=== PATIENT | female | born 1995 | race Caucasian/White ===

== ENCOUNTER 2017-04-06 23:36 | Inpatient (IN) | payer OTHER ==
[~2017-04-06 23:36] MED LIST: MTR600X PO; PRENTAB26 PO
[2017-04-07] MEDS ORDERED: LACTATED RINGER'S 1000ML 1,000 ML IV PRN (00:43)
[2017-04-07] MEDS ORDERED: PENICILLIN G POTASSIUM IV 6 MU in DEXTROSE 5% 250ML 250 ML IV ONE (00:45)
[2017-04-07] MEDS ORDERED: PENICILLIN G POTASSIUM IV 3 MU in DEXTROSE 5% 100ML 100 ML IV PRN (00:45)
[2017-04-07] MEDS ORDERED: FENTANYL 2MCG/ML ROPIV 1.25MG/ML 100ML BAG EPI ONE (00:53)
[2017-04-07] MEDS ORDERED: FENTANYL CITRATE INJ 50 MCG/1 ML 2 ML VIAL ONE (00:53)
[2017-04-07] MEDS ORDERED: EpHEDrine SULFATE INJ 50 MG/ML AMP ONE (00:53)
[2017-04-07] MEDS ORDERED: BUPIVACAINE 0.25% 30 ML VIAL ONE (00:53)
[2017-04-07 01:14] VITALS: Wt 68.2 kg
[2017-04-07 01:16] LABS: HEMATOCRIT 31.4 % (37-47); MEAN CELL VOLUME 89.2 fL (80-100); MEAN CORPUSCULAR HEMOGLOBIN 30.4 pg (25-34); MEAN CORPUSCULAR HGB CONC 34.1 g/dl (32-36); MEAN PLATELET VOLUME 9.8 fL (7.4-10.4); PLATELET COUNT 217 K/uL (130-400); RED BLOOD COUNT 3.52 M/uL (4.2-5.4); WHITE BLOOD COUNT 17.88 K/uL (4.8-10.8)
[2017-04-07] MEDS ORDERED: LACTATED RINGER'S 1000ML 500 ML IV PRN (01:51)
[2017-04-07] MEDS ORDERED: NALOXONE HCL INJ 1 MG in SODIUM CHLORIDE 0.9% 1000ML 1,000 ML IV PRN (01:51)
[2017-04-07] MEDS: LACTATED RINGER'S 1000ML 1,000 ML IV SCH ×2 (01:55→04:42)
[2017-04-07] MEDS ORDERED: DiphenhydrAMINE HCL 50 MG/ML VIAL IV PRN (02:00)
[2017-04-07] MEDS ORDERED: ONDANSETRON INJ 2 MG/ML 2 ML VIAL IV PRN (02:00)
[2017-04-07] MEDS ORDERED: FENTANYL 2MCG/ML ROPIV 1.25MG/ML 100ML BAG EPI PRN (02:00)
[2017-04-07] MEDS ORDERED: NALOXONE HCL INJ 0.4 MG/1 ML VIAL/CARP IV PRN (02:00)
[2017-04-07] MEDS ORDERED: EpHEDrine SULFATE INJ 50 MG/ML AMP IV PRN (02:00)
[2017-04-07] MEDS ORDERED: NALBUPHINE HCL INJ 10 MG/ML AMP IV PRN (02:00)
[2017-04-07] MEDS ORDERED: OXYTOCIN 30 UNITS/500ML NSS IV ONE (05:09)
[2017-04-07] MEDS ORDERED: OXYCODONE/ACETAMINOPHEN 5-325 TAB PO PRN (05:30)
[2017-04-07] MEDS ORDERED: HYDROCORTISONE ACETATE 25 MG SUPP PR PRN (05:30)
[2017-04-07] MEDS ORDERED: MISOPROSTOL 200 MCG TAB PR SCH (05:30)
[2017-04-07] MEDS ORDERED: ACETAMINOPHEN 325 MG TAB PO PRN (05:30)
[2017-04-07] MEDS ORDERED: ACETAMINOPHEN/CODEINE 300/30MG TAB PO PRN ×2 (05:30)
[2017-04-07] MEDS ORDERED: BENZOCAINE 20% AER SPR 82.5 GM CAN EXT PRN (05:30)
[2017-04-07] MEDS ORDERED: SUPERCREAM 0.870 % 15GM JAR EXT PRN (05:30)
[2017-04-07] MEDS ORDERED: LANOLIN OINT EXT PRN ×2 (05:30)
--- NOTE | 2017-04-07 06:55 | HISTORY & PHYSICAL EXAMINATION ---
DATE OF ADMISSION: 04/07/2017 HISTORY OF PRESENT ILLNESS: The patient is a 22-year-old G2, P1, due date 05/16/2017, making her 34 weeks and 2 days who presented on 04/06/2017 with contractions every 3-4 minutes. On arrival to labor and delivery, she had no shortness of breath, no chills, no fever. She was examined and found to be 5 cm dilated with bulging membranes and 0 station. Decision was therefore made to admit patient and anticipate delivery. The patient's had been uncomplicated. She had no history of labor and had never been seen and evaluated during the course of her for labor. LABS: O positive, antibody negative, rubella immune, GBS is unknown. PAST MEDICAL HISTORY: None. PAST SURGICAL HISTORY: The patient has had dental surgery in the past. 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 SOCIAL HISTORY: The patient denies tobacco, drug or alcohol use. ALLERGIES: No known drug allergies. PHYSICAL EXAMINATION: GENERAL: Well-developed, well-nourished white female in no acute distress. HEART: S1, S2, regular rhythm and rate. LUNGS: Clear to auscultation bilaterally. ABDOMEN: Gravid. EXTREMITIES: No cyanosis, clubbing or edema. PELVIC: On admission as stated above was 5 cm with bulging membranes. Bedside ultrasound shows cephalic presentation. ASSESSMENT AND PLAN: A 22-year-old G2, P1 at 34 weeks with labor. Anticipate delivery. The patient is admitted, will be giving GBS prophylaxis. Anticipate vaginal delivery.
--- NOTE | 2017-04-07 06:58 | DELIVERY SUMMARY ---
DATE OF OPERATION: 04/07/2017 The patient delivered a live infant in left occiput anterior presentation. There was a body cord around the left arm. There was no nuchal cord. Infant was delivered. Cord was clamped and cut and handed over to the awaiting pediatric team. 's weight is pending. Apgars 7 and 9. Cord gas and Cord blood obtained. Placenta is spontaneously delivered and sent to pathology for pathological analysis. Inspection of the perineum showed no lacerations or tears. Estimated blood loss is 500 mL. Baby and mother are doing well in recovery. All instruments are accounted for including sponges and retractors. I attest to the content of the Intraoperative Record and any orders documented therein. Any exception s are noted below.
--- NOTE | 2017-04-07 07:12 | Anesthesia Procedure Note ---
Anesthesia Epidural Removal Nt Date & Time Apr 07, 2017 at 07:12 Vital Signs Pain Intensity: 0.0 Notes Mental Status: alert / awake / arousable, participated in evaluation Nausea / Vomiting: adequately controlled Pain: adequately controlled Airway Patency, RR, SpO2: stable & adequate BP & HR: stable & adequate Hydration State: stable & adequate Neuraxial Anesthesia: was administered Anesthetic Complications: no major complications apparent, pt satisfied with anesthetic care Epidural: removed without complications, with tip intact
[2017-04-07 07:30] VITALS: BP 121/60; PULSE 90; TEMP 37.7
[2017-04-07] MEDS: PANTOprazole SOD 40 MG TAB PO SCH ×2 (08:00→20:00)
[2017-04-07] MEDS: PRENATAL VITAMIN TAB PO SCH (08:14)
[2017-04-07] MEDS: DOCUSATE SODIUM 100 MG CAP PO SCH ×2 (08:14→20:00)
[2017-04-07] MEDS: FERROUS SULFATE 325 MG TAB PO SCH (08:15)
[2017-04-07 08:30] VITALS: BP 120/72; PULSE 91; TEMP 36.8; O2SAT 99
[2017-04-07] MEDS: IBUPROFEN 600 MG TAB PO PRN ×2 (11:45→17:24)
[2017-04-07 12:55] VITALS: BP 110/73; PULSE 72; TEMP 36.8; O2SAT 97
[2017-04-07 17:15] VITALS: BP 110/72; PULSE 76; TEMP 36.6; O2SAT 99
[2017-04-07 19:20] VITALS: BP 116/75; PULSE 78; TEMP 36.4
[2017-04-08] VITALS: BP 103/69; PULSE 80; TEMP 36.6
[2017-04-08 03:59] VITALS: BP 97/63; PULSE 71; TEMP 36.6
[2017-04-08 07:45] VITALS: BP 103/69; PULSE 79; TEMP 36.5; O2SAT 100
[2017-04-08] MEDS: PANTOprazole SOD 40 MG TAB PO SCH (08:00)
[2017-04-08 08:20] VITALS: BP 103/69; PULSE 79; TEMP 36.5
[2017-04-08] MEDS: DOCUSATE SODIUM 100 MG CAP PO SCH (08:22)
[2017-04-08] MEDS: FERROUS SULFATE 325 MG TAB PO SCH (08:22)
[2017-04-08] MEDS: PRENATAL VITAMIN TAB PO SCH (08:22)
[2017-04-08] MEDS: IBUPROFEN 600 MG TAB PO PRN (08:23)
[2017-04-08 10:10] LABS: HEMATOCRIT 33.3 % (37-47)
[2017-04-08] MEDS ORDERED: MTR600X PO (11:38)
--- NOTE | 2017-04-08 11:38 | OB/GYN Progress Note ---
INVENTORY CONTROL/SHIPPING RECEIVING Progress Note Date of Service Apr 08, 2017. Subjective conversation w/ patient Ambulation: ambulating normally Voiding: no voiding problems Passing Gas: Yes Diet Tolerance: Regular Diet Lochia: Small Feeding Type: Bottle Feeding Objective Vital Signs Date Time Temp Pulse Resp B/P (MAP) Pulse Ox O2 Delivery O2 Flow Rate FiO2 04/08/17 08:20 Room Air 04/08/17 08:20 36.5 79 16 103/69 (80) Room Air 04/08/17 07:45 36.5 79 16 103/69 (80) 100 Room Air 04/08/17 03:59 36.6 71 16 97/63 (74) Room Air 04/08/17 00:00 36.6 80 18 103/69 (80) Room Air 04/08/17 00:00 Room Air 04/07/17 19:20 Room Air 04/07/17 19:20 36.4 78 18 116/75 (89) Room Air 04/07/17 17:15 36.6 76 16 110/72 (85) 99 Room Air 04/07/17 17:15 99 Room Air 04/07/17 12:55 36.8 72 18 110/73 (85) 97 Room Air Physical Exam General Appearance: WELL-APPEARING, NO APPARENT DISTRESS Abdomen: non tender, soft Fundus: Firm Extremities: non-tender, normal inspection, no pedal edema Laboratory Results Last 24 Hours Test 04/08/17 09:53 Hemoglobin 11.4 g/dL Hematocrit 33.3 % Assessment and Plan Post- Day Number: 1 Continue Routine Care: patient requesting discharge tonight
--- NOTE | 2017-04-08 11:40 | Discharge Instructions ---
Discharge Instructions Date of Service Apr 08, 2017. Admission Reason for Admission: Labor Discharge Discharge Diagnosis / Problem: delivered Discharge Goals Goal(s): Routine recovery after delivery Activity Recommendations Activity Limitations: as noted below Lifting Limitations: no more than 10 pounds Exercise/Sports Limitations: gradually increase as tolerated May Resume Sexual Activity: after follow-up appointment Shower/Bathe: no limitations Driving or Machine Use: resume 3 days after discharge . Instructions / Follow-Up Instructions / Follow-Up ACTIVITY RECOMMENDATIONS: * Gradual return to full activity over the next 2-3 weeks. * No lifting - nothing heavier than baby over the next 2-3 weeks. * Do not engage in vigorous exercise, sexual activity or sports until cleared by your physician. * Do not drive or operate any motorized equipment until cleared by your physician. * You may shower/bathe daily. BREAST CARE: If you are not breast feeding: * Wear a supportive bra 24 hours a day for one to two weeks. * Avoid stimulating your breasts and nipples as much as possible during the first few weeks after delivery. * When taking a shower, have the warm water hit your back, not breasts. * When your breasts feel full, apply ice packs. Usually three to four times a day helps ease the discomfort. * Take a mild pain medication (Tylenol/Motrin) when you are uncomfortable. If breast feeding: * Use breast milk to lubricate nipples. Lansinoh cream may be used for sore nipples. You do not need to remove cream prior to breast feeding. If using a different brand of cream, check the label for directions regarding removal of cream prior to nursing. * Wear a supportive bra. * If having problems with breasts or breast feeding, call a ada accommodation consultant or your health care provider. EPISIOTOMY CARE: After delivery, if you have an episiotomy (stitches), the following steps will ease discomfort and aid healing. * For the first 24 hours after delivery, place ice packs next to your episiotomy to help reduce swelling. * After the first 24 hour-period, sitz baths, either portable or in the tub, are suggested. A shower with a shower arm sprayed over the episiotomy may be comforting. * Amy care should be done after each voiding and bowel movement. Squirt warm water from a plastic bottle over the perineum (region of the body between the anus and urinary opening) and pat dry. * Use Dermoplast to ease discomfort. Shake container. Wheeler directly over the episiotomy. * Place a Tucks on a clean sanitary pad next to your episiotomy. OVER THE COUNTER MEDICATION: * For discomfort or pain, you may use Acetaminophen (Tylenol), Ibuprofen (Advil ), or Naproxen (Aleve) following the package directions. * For constipation you may use Colace following the package directions. SPECIAL CARE INSTRUCTIONS: When you are discharged from the hospital, it is important for you to follow the instructions listed below: * During the first week at home, you should be able to care for yourself and your baby. In addition, the usual light household activities are encouraged. * Limit your activities to the way you feel. Do not try to clean the house or move furniture. Be sensible. * If you actively engage in sports and have done so up until the time of your delivery, you may resume these activities as soon as you feel able. This may take up to one month or even longer. Use good judgment. * Continue to take your vitamins for at least six weeks after the of your baby. * Your diet need not be limited unless you were on a special diet before your delivery. Breast-feeding mothers need around 2500 calories per day and at least 64-80 ounces of fluid per day (8 to 10 glasses). * You should eat foods from the four major food groups. Crash diets or fad diets are to be avoided. Eating lean meats, fresh fruits and vegetables, low-fat dairy products, high fiber foods and a regular exercise program, will help you get back to your pre- weight without putting your health at risk. * Constipation is sometimes a problem after delivery. Take a mild laxative as needed. If breast feeding, Milk of Magnesia is acceptable to use. You may use a suppository or Fleets enema if no episiotomy. * A daily shower or tub bath is suggested. Be sure to thoroughly and gently dry the perineum. * A bloody vaginal discharge will usually continue until around four weeks post . A small amount of bleeding may continue for as long as six weeks. Vaginal discharge changes from the bright red bleeding after delivery to pink then brownish and finally yellowish-pink before becoming white and disappearing. * Bleeding may increase with activity. Your first period may come in 4-8 weeks. If you are breast feeding, your period may be delayed even longer. * Nelagoney (sex) can begin whenever both you and your partner feel comfortable and do not have any form of genital infection. It is recommended that you wait until after your return appointment and discuss with your physician. If you have questions, please talk to your health care practitioner. A condom should be used to prevent infection and . * Foreplay, gentle intercourse and lubrication is very important the first several times to prevent pain. A water-based lubricant such as K-Y jelly or Astroglide may be used. * Tampons may be used six weeks after delivery. * Douching should be avoided for 6 weeks after delivery. * If you have RH negative blood and your baby is RH positive, you will receive RHOGAM by injection prior to discharge. The nurse will give you a card to keep with you that has the date and place that you received RHOGAM after delivery. * During your care, you had a Rubella screen done to check for the presence of rubella antibodies in your blood. If your test was negative, you will receive a Rubella vaccine prior to discharge. This vaccine may cause a fever, soreness at the injection site and flu-like symptoms. If these symptoms persist, notify your health care practitioner. is not advised for three months after a Rubella vaccine. There is a higher chance of having a baby with defects if conceived within three months of getting the vaccine. * If you were discharged 24 hours from delivery or before 48 hours: Visiting nurses will come to your home 48 hours after discharge to assess you and your baby. The visiting nurse will meet with you while you are in the hospital to arrange a time and get directions to your home. * Verbalizes understanding of car seat law as reviewed with patient nursing. * Car Seat hand-out given and reviewed with patient by nursing. * Shaken baby information reviewed with patient by nursing. Call you doctor if: * Heavy bleeding (saturating several pads an hour) or passing clots the size of your fist. * A fever >101 degrees F (38.3 degrees C) on two occasions four hours apart and/or chills. * Unusual pain in the pelvic or vaginal areas. * "Baby Blues" lasting longer than two weeks. If you have any questions or concerns, call your health care practitioner at . FOLLOW-UP VISIT: * Please call the office at to schedule a 6 week examination. It is important you keep this appointment. * It is important for you to make arrangements for either yearly or twice yearly check-ups thereafter. Current Hospital Diet Patient's current hospital diet: Regular OB Diet Discharge Diet Recommended Diet: Regular OB Diet Pending Studies Studies pending at discharge: no Medical Emergencies . Who to Call and When: Medical Emergencies: If at any time you feel your situation is an emergency, please call 911 immediately. . Non-Emergent Contact Non-Emergency issues call your: Primary Care Provider . . "Provider Documentation" section prepared by Russell Foster. . VTE Core Measure Inpt VTE Proph given/why not?: Treatment not indicated
[2017-04-08 16:00] VITALS: BP 123/80; PULSE 89; TEMP 36.7
[2017-04-08 17:40] VITALS: BP_DIAS 80; PULSE 89; TEMP 36.7
[2017-04-08] MEDS ORDERED: BISACODYL 5 MG TABEC PO SCH (20:00)
[2017-04-09] MEDS ORDERED: BISACODYL 10 MG SUPP PR PRN (07:00)
== END 2017-04-08 18:40 | disposition home or self-care (01) | DRG 775 ==
LOC: C.OPB 23:36 → C.LD 23:36 → C.OPB 04-07 00:47 → C.OBG 04-07 08:11
PROVIDERS: ADMIT Obstetrics & Gynecology; ATTEND Obstetrics & Gynecology
PROC: 10E0XZZ Delivery of Products of Conception, External Approach (ICD-10-PCS; principal; 2017-04-07)
DX: O60.14X0 Preterm labor third trimester with preterm delivery third trimester, not applicable or unspecified (principal); O76 Abnormality in fetal heart rate and rhythm complicating labor and delivery; O69.82X0 Labor and delivery complicated by other cord entanglement, without compression, not applicable or unspecified; Z3A.34 34 weeks gestation of pregnancy; Z37.0 Single live birth

== ENCOUNTER 2017-11-27 11:27 | Emergency (ER) | payer BC ==
[~2017-11-27] VITALS: Ht 160 cm; Wt 60.0 kg
[2017-11-27 11:29] VITALS: Ht 160 cm; Wt 60.0 kg
[2017-11-27] MEDS ORDERED: SODIUM CHLORIDE 0.9% 1000ML 1,000 ML IV STA (11:51)
[2017-11-27] MEDS ORDERED: MoRPHine SULFATE 10 MG/ML CARP/VIAL IV STA (11:51)
[2017-11-27] MEDS ORDERED: ONDANSETRON INJ 2 MG/ML 2 ML VIAL IV STA (11:51)
[2017-11-27] MEDS ORDERED: BCPILLS PO (11:54)
[2017-11-27] MEDS ORDERED: SERT25TA PO (11:54)
[2017-11-27 12:03] VITALS: O2SAT 99
[2017-11-27 12:14] LABS: BASO % 0.3 %; BASO ABS # 0.03 K/uL (0-0.2); EOS % 0.5 %; EOS ABS # 0.05 K/uL (0-0.5); HEMATOCRIT 41.3 % (37-47); IG# 0.02 K/uL (0.00-0.02); LYMPH ABS # 1.93 K/uL (1.2-3.4); MEAN CORPUSCULAR HEMOGLOBIN 28.8 pg (25-34); MEAN CORPUSCULAR HGB CONC 33.9 g/dl (32-36); MEAN PLATELET VOLUME 10.5 fL (7.4-10.4); MONO ABS # 0.31 K/uL (0.11-0.59); NEUT ABS # 7.84 K/uL (1.4-6.5); PLATELET COUNT 240 K/uL (130-400); RED CELL DISTRIBUTION WIDTH SD 37.1 fL (36.4-46.3); WHITE BLOOD COUNT 10.18 K/uL (4.8-10.8)
[2017-11-27 12:21] LABS: PTT PATIENT 23.6 SECONDS (21.0-31.0)
[2017-11-27 12:22] LABS: ISTAT CREATININE 0.8 mg/dl (0.6-1.3); ISTAT IONIZED CALCIUM 1.23 mmol/l (1.12-1.32); ISTAT POTASSIUM 3.7 mEq/L (3.3-5.0); ISTAT SODIUM 143 mEq/L (135-144)
[2017-11-27 12:24] LABS: CALCIUM 9.3 mg/dl (8.5-10.1); CREATININE 0.96 mg/dl (0.60-1.20); POTASSIUM 3.7 mmol/L (3.5-5.1); TOTAL PROTEIN 7.8 gm/dl (6.4-8.2)
--- NOTE | 2017-11-27 12:37 | DIAGNOSTIC IMAGING REPORT ---
CT SCAN OF THE ABDOMEN AND PELVIS WITHOUT CONTRAST CLINICAL HISTORY: RLQ abdominal pain, hematuria COMPARISON STUDY: No previous studies for comparison. TECHNIQUE: CT scan of the abdomen and pelvis was performed from the lung bases to the proximal femurs. Images are reviewed in the axial, sagittal, and coronal planes. IV contrast was not administered for this examination. A dose lowering technique was utilized adhering to the principles of ALARA. CT DOSE: 411.10 mGy.cm FINDINGS: Lower chest: The heart is normal in size and configuration, without pericardial effusion. The lung bases and pleural spaces are clear. Liver: The unenhanced liver is normal in size, contour, and attenuation. There is no intrahepatic biliary ductal dilatation. Gallbladder: Unremarkable. Spleen: Normal in size and attenuation. Pancreas: Unremarkable. Adrenal glands: Unremarkable. Kidneys: There are multiple bilateral renal calculi measuring up to 3 mm in diameter. There is right-sided hydronephrosis and hydroureter. There is a 2 mm right pelvic basin calcification. The distal right ureter is difficult to visualize. Given the right-sided hydronephrosis and hydroureter, an obstructing calculus is favored over a phlebolith. Bowel: There are no transition zones indicate bowel obstruction. The appendix appears normal as visualized. Peritoneum: There is no intraperitoneal free air or abdominal ascites. Vasculature: The abdominal aorta is normal in course and caliber. Adenopathy: None. Pelvic viscera: The bladder, and pelvic viscera are unremarkable. Skeletal structures: No destructive osseous lesions are seen. IMPRESSION: 1. Bilateral nephrolithiasis 2. Right-sided hydronephrosis and hydroureter, likely secondary to a 2 mm distal right ureteral calculus. Electronically signed by: Dandy Ellison M.D. 11/27/2017 12:36 PM Dictated Date/Time: 11/27/2017 12:28 PM
[2017-11-27] MEDS ORDERED: TAMSULOSIN HCL 0.4 MG CAP PO STA (13:07)
[2017-11-27] MEDS ORDERED: SULFAMETHOXAZOLE/TRIMETHOPRIM DS 800/160MG TAB PO STA (13:08)
[2017-11-27] MEDS ORDERED: TAMS0.4C38 PO (13:11)
[2017-11-27] MEDS ORDERED: OXYC-90 PO (13:11)
[2017-11-27] MEDS ORDERED: ONDA4TAB10 SL (13:11)
--- NOTE | 2017-11-27 13:12 | EMERGENCY ROOM VISIT NOTE ---
History First contact with patient: 11:33 Chief Complaint: ABDOMINAL PAIN Stated Complaint: RIGHT SIDED ABDOMINAL PAIN, VOMITING Nursing Triage Summary: Patient c/o of lower right abdominal and back pain, nausea and vomiting. History of Present Illness The patient is a 22 year old female who presents to the Emergency Room with complaints of right lower quadrant abdominal the patient describes the pain as sharp and rates it as 10/10. She states the pain began spontaneously approximately 8 AM after standing up after doing her makeup. Patient states the pain became worse while walking around. She has had associated nausea and vomiting. She states she does have 2 children and states the pain "feels like childbirth". The patient denies any abdominal surgeries. She denies any change in her diet. She states her last menstrual period was 2 days ago. The patient denies any abnormal vaginal bleeding or pain with intercourse. She denies any chest pain or dyspnea. She denies any headache, numbness, tingling, recent illness, fever, chills, or back pain. Review of Systems A complete 10 point review of systems was reviewed with the patient with pertinent positives and negatives as per history of present illness. All else were negative. Social History Smoking Status: Never Smoker Smokeless Tobacco Use: No Alcohol Use: none Drug Use: none Marital Status: Housing Status: lives with family Occupation Status: employed Current/Historical Medications Scheduled Control Pills ( Control Pills), 1 TAB PO HS Ondasetron Odt (Zofran Odt), 4 MG SL Q6H Sertraline (Zoloft), 25 MG PO QAM Tamsulosin Hcl (Flomax), 0.4 MG PO QD Scheduled PRN Oxycodone Ir (Roxicodone Ir), 1 TAB PO Q4H PRN for Pain Physical Exam Vital Signs Date Time Temp Pulse Resp B/P (MAP) Pulse Ox O2 Delivery O2 Flow Rate FiO2 11/27/17 13:31 71 18 107/57 100 Room Air 11/27/17 13:00 70 18 97/54 100 Room Air 11/27/17 12:35 74 11/27/17 12:33 74 18 111/66 100 Room Air 11/27/17 12:15 89 18 111/61 99 Room Air 11/27/17 12:03 99 Room Air 11/27/17 11:29 37.0 96 18 110/59 99 Room Air Physical Exam VITALS: Vitals are noted on the nurse's note and reviewed by myself. Vital signs stable. GENERAL: This is a 22-year-old white female, in no acute distress, nondiaphoretic, well-developed well-nourished. SKIN: The skin was without rashes, erythema, edema, or bruising. There is no tenting of the skin. Capillary reflex less than 2 seconds. HEAD: Normocephalic atraumatic. EARS: External auditory canals clear, tympanic membranes pearly cohen without erythema or effusion bilaterally. EYES: Pupils equal round and reactive to light and accommodation. Conjunctivae without injection, sclerae without icterus. Extraocular movements intact. NOSE: Patent, turbinates without inflammation or discharge. No sinus tenderness. MOUTH: Mucous membranes moist. Tonsils are not enlarged. Pharynx without erythema or exudate. Uvula midline. Airway patent. Tongue does not deviate. NECK: Supple without nuchal rigidity. No lymphadenopathy. No thyromegaly. Cervical spine is nontender. No JVD. HEART: Regular rate and rhythm without murmurs gallops or rubs. LUNGS: Clear to auscultation bilaterally without wheezes, rales or rhonchi. No dullness to percussion. No retractions or accessory muscle use. ABDOMEN: Positive bowel sounds x 4. Normal tympanic percussion. Right lower quadrant tenderness to palpation. Positive guarding with palpation of the right. Positive rebound tenderness. Positive Rovsing. The abdomen is otherwise soft, nontender, without masses or organomegaly. Case sign negative. \\Positive CVA tenderness on the right. MUSCULOSKELETAL: No muscle atrophy, erythema, or edema noted. Full range of motion without joint tenderness in all extremities. No tenderness to palpation. Normal gait. Strength 5/5 throughout. NEURO: Patient was alert and oriented to person place and time. Normal sensation to light and sharp touch. Deep tendon reflexes 2+ throughout. No focal neurological deficits. Medical Decision & Procedures ER Provider Diagnostic Interpretation: CT SCAN OF THE ABDOMEN AND PELVIS WITHOUT CONTRAST CLINICAL HISTORY: RLQ abdominal pain, hematuria COMPARISON STUDY: No previous studies for comparison. TECHNIQUE: CT scan of the abdomen and pelvis was performed from the lung bases to the proximal femurs. Images are reviewed in the axial, sagittal, and coronal planes. IV contrast was not administered for this examination. A dose lowering technique was utilized adhering to the principles of ALARA. CT DOSE: 411.10 mGy.cm FINDINGS: Lower chest: The heart is normal in size and configuration, without pericardial effusion. The lung bases and pleural spaces are clear. Liver: The unenhanced liver is normal in size, contour, and attenuation. There is no intrahepatic biliary ductal dilatation. Gallbladder: Unremarkable. Spleen: Normal in size and attenuation. Pancreas: Unremarkable. Adrenal glands: Unremarkable. Kidneys: There are multiple bilateral renal calculi measuring up to 3 mm in diameter. There is right-sided hydronephrosis and hydroureter. There is a 2 mm right pelvic basin calcification. The distal right ureter is difficult to visualize. Given the right-sided hydronephrosis and hydroureter, an obstructing calculus is favored over a phlebolith. Bowel: There are no transition zones indicate bowel obstruction. The appendix appears normal as visualized. Peritoneum: There is no intraperitoneal free air or abdominal ascites. Vasculature: The abdominal aorta is normal in course and caliber. Adenopathy: None. Pelvic viscera: The bladder, and pelvic viscera are unremarkable. Skeletal structures: No destructive osseous lesions are seen. IMPRESSION: 1. Bilateral nephrolithiasis 2. Right-sided hydronephrosis and hydroureter, likely secondary to a 2 mm distal right ureteral calculus. Electronically signed by: Dandy Ellison M.D. 11/27/2017 12:36 PM Dictated Date/Time: 11/27/2017 12:28 PM Laboratory Results 11/27/17 11:45 Red Blood Count 4.86, Mean Corpuscular Volume 85.0, Mean Corpuscular Hemoglobin 28.8, Mean Corpuscular Hemoglobin Concent 33.9, Mean Platelet Volume 10.5, Neutrophils (%) (Auto) 77.0, Lymphocytes (%) (Auto) 19.0, Monocytes (%) (Auto) 3.0, Eosinophils (%) (Auto) 0.5, Basophils (%) (Auto) 0.3, Neutrophils # (Auto) 7.84, Lymphocytes # (Auto) 1.93, Monocytes # (Auto) 0.31, Eosinophils # (Auto) 0.05, Basophils # (Auto) 0.03 11/27/17 11:45 Test 11/27/17 11:40 11/27/17 11:45 11/27/17 12:10 Urine Color DK YELLOW Urine Appearance CLOUDY (CLEAR) Urine pH 5.5 (4.5-7.5) Urine Specific [place] 1.025 (1.000-1.030) Urine Protein TRACE (NEG) Urine Glucose (UA) NEG (NEG) Urine Ketones 1+ (NEG) Urine Occult Blood 3+ (NEG) Urine Nitrite NEG (NEG) Urine Bilirubin NEG (NEG) Urine Urobilinogen NEG (NEG) Urine Leukocyte Esterase TRACE (NEG) Urine WBC (Auto) 5-10 /hpf (0-5) Urine RBC (Auto) >30 /hpf (0-4) Urine Hyaline Casts (Auto) 10-30 /lpf (0-5) Urine Epithelial Cells (Auto) >30 /lpf (0-5) Urine Bacteria (Auto) 1+ (NEG) Urine Pathogenic Casts 0-3 GRANULAR CASTS /lpf (0) Urine Mucus PRESENT (NONE PRSENT) Urine Test NEG (NEG) White Blood Count 10.18 K/uL (4.8-10.8) Red Blood Count 4.86 M/uL (4.2-5.4) Hemoglobin 14.0 g/dL (12.0-16.0) Hematocrit 41.3 % (37-47) Mean Corpuscular Volume 85.0 fL (80-100) Mean Corpuscular Hemoglobin 28.8 pg (25-34) Mean Corpuscular Hemoglobin Concent 33.9 g/dl (32-36) Platelet Count 240 K/uL (130-400) Mean Platelet Volume 10.5 fL (7.4-10.4) Neutrophils (%) (Auto) 77.0 % Lymphocytes (%) (Auto) 19.0 % Monocytes (%) (Auto) 3.0 % Eosinophils (%) (Auto) 0.5 % Basophils (%) (Auto) 0.3 % Neutrophils # (Auto) 7.84 K/uL (1.4-6.5) Lymphocytes # (Auto) 1.93 K/uL (1.2-3.4) Monocytes # (Auto) 0.31 K/uL (0.11-0.59) Eosinophils # (Auto) 0.05 K/uL (0-0.5) Basophils # (Auto) 0.03 K/uL (0-0.2) RDW Standard Deviation 37.1 fL (36.4-46.3) RDW Coefficient of Variation 12.0 % (11.5-14.5) Immature Granulocyte % (Auto) 0.2 % Immature Granulocyte # (Auto) 0.02 K/uL (0.00-0.02) Prothrombin Time 10.6 SECONDS (9.0-12.0) Prothromb Time International Ratio 1.0 (0.9-1.1) Activated Partial Thromboplast Time 23.6 SECONDS (21.0-31.0) Partial Thromboplastin Ratio 0.9 Est Creatinine Clear Calc Drug Dose 74.7 ml/min Estimated GFR () 95.9 Estimated GFR (Non- 82.8 BUN/Creatinine Ratio 12.7 (10-20) Calcium Level 9.3 mg/dl (8.5-10.1) Total Bilirubin 0.4 mg/dl (0.2-1) Aspartate Amino Transf (AST/SGOT) 18 U/L (15-37) Alanine Aminotransferase (ALT/SGPT) 24 U/L (12-78) Alkaline Phosphatase 48 U/L (45-117) Total Protein 7.8 gm/dl (6.4-8.2) Albumin 4.0 gm/dl (3.4-5.0) Globulin 3.8 gm/dl (2.5-4.0) Albumin/Globulin Ratio 1.0 (0.9-2) Lipase 79 U/L (73-393) Bedside Hemoglobin 13.3 g/dl (12.0-16.0) Bedside Hematocrit 39 % (37-47) Bedside Sodium 143 mEq/L (135-144) Bedside Potassium 3.7 mEq/L (3.3-5.0) Bedside Chloride 103 mEq/L (101-112) Bedside Total CO2 27 mEq/l (24-31) Anion Gap 18.0 mmol/L (16-25) Bedside Blood Urea Nitrogen 14 mg/dl (7-18) Bedside Creatinine 0.8 mg/dl (0.6-1.3) Bedside Glucose (other) mg/dl (70-99) Bedside Ionized Calcium (Willy) 1.23 mmol/l (1.12-1.32) Medications Administered Medications (Trade) Dose Ordered Sig/Abena Route Start Time Stop Time Status Last Admin Dose Admin Sodium Chloride 1,000 ml @ 999 mls/hr Q1H1M STAT IV 11/27/17 11:51 11/27/17 12:51 DC 11/27/17 12:12 999 MLS/HR Morphine Sulfate (MoRPHine SULFATE INJ) 6 mg NOW STAT IV 11/27/17 11:51 11/27/17 11:59 DC 11/27/17 12:13 6 MG Ondansetron HCl (Zofran Inj) 4 mg NOW STAT IV 11/27/17 11:51 11/27/17 11:59 DC 11/27/17 12:12 4 MG Tamsulosin HCl (Flomax Cap) 0.4 mg NOW STAT PO 11/27/17 13:07 11/27/17 13:09 DC 11/27/17 13:29 0.4 MG Trimethoprim/ Sulfamethoxazole (Septra Ds 800/ 160MG Tab) 1 tab NOW STAT PO 11/27/17 13:08 11/27/17 13:09 DC 11/27/17 13:30 1 TAB ED Course The patient was seen and evaluated as above. IV access obtained, labs drawn. The patient was given 1 L normal saline solution, morphine, and Zofran for pain and nausea Imaging performed and reviewed by myself and radiologist as above. Labs reviewed by myself. I discussed the findings with the patient at bedside. The patient was given Flomax and Bactrim here in the emergency department and provided with a urine strainer. Discharge instructions reviewed, the patient was discharged home in good condition. Medical Decision This is a 22-year-old female patient presents emergency department today complaining of right lower quadrant abdominal pain radiating toward the right flank. The pain began spontaneously this morning. She has not recently been ill and denies any fever. Workup here in the emergency department did not reveal any leukocytosis, anemia, thrombus cytopenia. The patient coagulation factors were normal. Renal, hepatic function and electrolytes normal. Lipase normal. Urinalysis was positive for blood, white blood cells, and bacteria. Urine test was negative. CT scan shows evidence for hydronephrosis and hydroureter, likely secondary to an obstructing stone in the distal right ureter. The patient will be started on Flomax and due to the bacteria and pyuria will be given 3 days of Bactrim. I did offer to hold on the antibiotics and wait for the culture, however the patient states she prefers to take the antibiotics in case of infection. The patient was encouraged to follow-up with her PCP and urologist on Thursday and return to the emergency department for any significantly worsening symptoms. All questions answered to patient's satisfaction. Etiologies such as renal colic, appendicitis, diverticulitis, mesenteric ischemia, aortic pathology, infections, inflammatory bowel disease, PUD, biliary pathology, UTI, as well as others were entertained. The chart was completed utilizing [employer] Speech voice recognition software. Grammatical errors, random word insertions, pronoun errors, and incomplete sentences are an occasional consequence of this system due to software limitations, ambient noise, and hardware issues. Any formal questions or concerns about the content, text, or information contained within the body of this dictation should be directly addressed to the provider for clarification. [place] Drug Monitoring Program Search Results: patient reviewed within database, no issues identified Medication Reconcilliation Current Medication List: was personally reviewed by me Blood Pressure Screening Patient's blood pressure: Normal blood pressure Impression Primary Impression: Hydronephrosis with urinary obstruction due to ureteral calculus Departure Information Dispostion Home / Self-Care Condition GOOD Prescriptions Sulfa/Trimethoprim (Bactrim Ds 800MG/160MG) Tab 1 TAB PO BID for 3 Days, #6 TAB Prov: Alyson Esquivel PA-C 11/27/17 Ondasetron Odt (ZOFRAN ODT) 4 Mg Tab 4 MG SL Q6H for Nausea, #15 TAB Prov: Alyson Esquivel PA-C 11/27/17 Oxycodone Ir (Roxicodone Ir) 5 Mg Tab 1 TAB PO Q4H Y for Pain, #15 TAB For Initial Treatment Prov: Alyson Esquivel PA-C 11/27/17 Tamsulosin Hcl (FLOMAX) 0.4 Mg Cap 0.4 MG PO QD, #14 CAP take until stone passes Prov: Alyson Esquivel PA-C 11/27/17 Referrals No Doctor, Assigned (PCP) Huber Lopez M.D. Patient Instructions ED Stone Renal W Colic, My [facility] Additional Instructions You have been treated in the Emergency Department today for a Kidney Stone ( Nephrolithiasis). You have received pain medicine in the emergency department which impairs your ability to operate a vehicle. It is illegal for you to drive after receiving these medicines. Trimethoprim-Sulfamethoxazole(Bactrim DS): Take one pill twice daily for 3 days for your urinary tract infection. All antibiotics can cause diarrhea. If this occurs and you feel worse or it does not resolve in 1-2 days follow up with your doctor or return to the Emergency Department as this could be signs of serious underlying problems. Any medication can cause an allergic reaction, stop the pills immediately and return to the ER for rash, hives, breathing difficulties, or swelling. You have been prescribed OxyIR to be used for pain control. This is a narcotic medication. You cannot drive or consume alcohol while on this medicine. This medicine should only be used for pain that cannot be controlled with over-the- counter pain medicines. You have been prescribed Zofran to be used for any nausea or vomiting. Take as prescribed. You have been prescribed Flomax 0.4 mg to be taken ONCE daily. This medicine has been prescribed as it can help relax the smooth muscles of the urinary tract increasing transit time of the kidney stone. For pain control, you can use the following yggm-ohx-cfiqnfk medicines (if >12 yo): Ibuprofen(Motrin, Advil) may be used for fever or pain. Use 600mg every six hours as needed. Take with food. Avoid using more than 2400mg in a 24 hour period. Do not use 2400mg per day for more than three consecutive days without physician direction. Prolonged inappropriate use can lead to stomach upset or ulcers. (AND/OR) Acetaminophen(Tylenol) may be used for fever or pain. Use 1000mg every six hours as needed. Avoid using more than 3000mg in a 24 hour period. You have been provided a strainer and specimen collection cup. You should strain your urine to collect any passed stones. Your stones can be placed into the specimen cup and taken to your Urologist for further evaluation. You have been provided the contact information for the on-call Urologist. You should contact the Urologist's office tomorrow to establish a follow-up appointment from today's Emergency Department visit. Return to the Emergency Department if your symptoms persist despite the treatment plan outlined above or if you develop the following symptoms: intractable pain, fever, chills, or large amounts of blood in your urine.
[2017-11-27 13:35] VITALS: BP 107/57; PULSE 71; TEMP 37; O2SAT 100
[2017-11-27] MEDS ORDERED: SULF800T23 PO (13:43)
== END 2017-11-27 13:36 | disposition home or self-care (01) ==
LOC: C.EDB 11:27 → MERGE 11:27 → C.EDC 13:36
DX: N13.2 Hydronephrosis with renal and ureteral calculous obstruction (principal); N39.0 Urinary tract infection, site not specified; Z79.3 Long term (current) use of hormonal contraceptives

== ENCOUNTER → 2017-12-08 | Outpatient (CLI) | payer BC ==
[~2017-12-08] MED LIST changes: +BCPILLS PO; +ONDA4TAB10 SL; +OXYC-90 PO; +SERT25TA PO; +TAMS0.4C38 PO
--- NOTE | 2017-12-08 11:29 | DIAGNOSTIC IMAGING REPORT ---
([place]/BLAD)RETROPERITON COMP CLINICAL HISTORY: 22 years-old Female presenting with N20.1 Ureteric yvnwzJ74.0 [id number]. TECHNIQUE: Real-time grayscale and limited color Doppler ultrasound imaging of the kidneys and bladder was performed. COMPARISON: CT from 11/27/2017. FINDINGS: Right kidney: Normal echogenicity of renal parenchyma. Right kidney measures 10.4 cm. Mild pelvocaliectasis. Multiple hyperechogenic foci measuring up to 4 mm, which may correlate with the renal calculi on CT. Left kidney: Normal echogenicity of renal parenchyma. Left kidney measures 11.1 cm. Mild pelviectasis. Multiple hyperechogenic foci measuring up to 5 mm, which may correlate with the renal calculi on CT. Bladder: Normal. Bilateral ureteral jets not visualized. Other: None. IMPRESSION: 1. Suspected mild right hydronephrosis. 2. Bilateral nephrolithiasis better appreciated on most recent CT. Electronically signed by: Que Castaneda M.D. 12/08/2017 11:27 AM Dictated Date/Time: 12/08/2017 11:25 AM
--- NOTE | 2017-12-08 11:32 | DIAGNOSTIC IMAGING REPORT ---
[facility]UB CLINICAL HISTORY: 22 years-old Female presenting with N20.1 Ureteric [id number] [id number]. TECHNIQUE: Single supine view of the abdomen was obtained. COMPARISON: CT from 11/27/2017 and ultrasound from 12/08/2017. FINDINGS: Nonobstructive bowel gas pattern. No gross pneumoperitoneum. Previously demonstrated bilateral nephrolithiasis on recent CT is not as well appreciated by radiograph. Additionally, the previously noted calculus in the distal right ureter is not radiographically apparent though this may indicate passage. Osseous structures normal. IMPRESSION: 1. Nonvisualization of the distal right ureteral calculus. This may be a limitation of radiograph or indicate passage. 2. Overall poor visualization of known bilateral nephrolithiasis by radiograph. Electronically signed by: Que Castaneda M.D. 12/08/2017 11:31 AM Dictated Date/Time: 12/08/2017 11:29 AM
== END | disposition home or self-care (01) ==
LOC: C.ULTR 10:43
PROVIDERS: ATTEND Urology
DX: N20.2 Calculus of kidney with calculus of ureter (principal)

== ENCOUNTER 2022-10-09 00:09 | Inpatient (IN) ==
[2022-10-09] MEDS ORDERED: NALOXONE HCL 1 MG in SODIUM CHLORIDE 0.9% 1000ML 1,000 ML IV PRN (00:35)
[2022-10-09] MEDS ORDERED: LIDOCAINE 1% LOCAL 20 ML VIAL INFIL PRN (00:35)
[2022-10-09] MEDS ORDERED: ePHEDrine sulfate 50 MG/ML AMP IV PRN (00:35)
[2022-10-09] MEDS ORDERED: fentaNYL citrate PF 100 MCG/2 ML VIAL EPI PRN (00:35)
[2022-10-09] MEDS ORDERED: fentaNYL citrate PF 100 MCG/2 ML VIAL EPI STA (00:35)
[2022-10-09] MEDS ORDERED: NALOXONE HCL 0.4 MG/1 ML VIAL/CARP IV PRN (00:35)
[2022-10-09] MEDS ORDERED: BUPIVACAINE 0.25% PF 30 ML VIAL EPI PRN (00:35)
[2022-10-09] MEDS ORDERED: LIDOCAINE 2%/EPINEPHRINE 1:200,000 20 ML PF EPI STA (00:35)
[2022-10-09] MEDS ORDERED: BUPIVACAINE 0.25% PF 30 ML VIAL EPI STA (00:35)
[2022-10-09] MEDS ORDERED: diphenhydrAMINE 50 MG/ML VIAL IV PRN (00:35)
[2022-10-09] MEDS ORDERED: ONDANSETRON INJ 2 MG/ML 2 ML VIAL IV PRN (00:35)
[2022-10-09] MEDS ORDERED: OXYTOCIN 30 UNITS/500 ML BAG IV PRN ×3 (00:35→11:15)
[2022-10-09] MEDS ORDERED: SODIUM CHLORIDE 0.9% PF INJ 10 ML VIAL EPI STA (00:35)
[2022-10-09] MEDS ORDERED: PENICILLIN G POTASSIUM 6 MU in DEXTROSE 5% 250 ML IV STA (00:35)
[2022-10-09] MEDS ORDERED: fentaNYL 2MCG/ML ROPIVACAINE 1.25MG/ML 100 ML BAG EPI PRN (00:35)
[2022-10-09] MEDS ORDERED: NALBUPHINE HCL INJ 10 MG/ML AMP IV PRN (00:35)
[2022-10-09] MEDS ORDERED: ROPIVACAINE 0.5% PF 5 MG/ML 20 ML VIAL EPI PRN (00:35)
[2022-10-09] MEDS ORDERED: SODIUM CHLORIDE 0.9% PF INJ 10 ML VIAL EPI PRN (00:35)
[2022-10-09] MEDS ORDERED: LIDOCAINE 2% MPF LOCAL 5 ML VIAL EPI PRN (00:35)
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
[2022-10-09] MEDS: LACTATED RINGER'S 1,000 ML IV PRN ×2 (00:40→07:02)
[2022-10-09] MEDS ORDERED: ePHEDrine sulfate 50 MG/ML AMP ONE (00:42)
[2022-10-09] MEDS ORDERED: BUPIVACAINE 0.25% PF 30 ML VIAL ONE (00:43)
[2022-10-09] MEDS ORDERED: SODIUM CHLORIDE 0.9% PF INJ 10 ML VIAL ONE (00:43)
[2022-10-09] MEDS ORDERED: LIDOCAINE 2%/EPINEPHRINE 1:200,000 20 ML PF ONE (00:43)
[2022-10-09] MEDS ORDERED: fentaNYL citrate PF 100 MCG/2 ML VIAL ONE (00:43)
[2022-10-09] MEDS ORDERED: fentaNYL 2MCG/ML ROPIVACAINE 1.25MG/ML 100 ML BAG EPI ONE (00:44)
[2022-10-09 01:06] LABS: Hematocrit (blood only) 33.6 % (37.0-47.0); Mean Corpuscular Hemoglobin 31.6 pg (25.0-34.0); Mean Corpuscular Hgb Conc 35.7 g/dL (32.0-36.0); Mean Corpuscular Volume 88.4 fL (80.0-100.0); Mean Platelet Volume 10.9 fL (9.4-12.4); Platelet Count 180 K/uL (130-400); RDW Coefficient of Variation 12.8 % (11.5-14.5); RDW Standard Deviation 41.3 fL (36.4-46.3); White Blood Count 11.42 K/ul (4.8-10.8)
[2022-10-09] MEDS ORDERED: PENICILLIN G POTASSIUM 3 MU in DEXTROSE 5% 100 ML IV SCH (05:00)
[2022-10-09] MEDS: PENICILLIN G POTASSIUM 3 MU in DEXTROSE 5% 100 ML IV PRN ×2 (05:08→09:02)
--- NOTE | 2022-10-09 07:04 | Labor Progress Brief Note ---
Date of Service October 09, 2022 Subjective Comfortable with epidural now. No urge to push. with h/o PTL in 2017 at 34wk, did not use michelle this . GBS pos. Assessment & Plan (1) Normal labor: Plan: Progressing with expectant management, epidural. Continue current care. PCN for GBS. Admission and Anticipated Discharge Date Admission Date: October 09, 2022 Physical Exam Genitourinary: Per RN, 9cm dilated (from 4 on admission) with vtx presentation. FHT Cat 1 Wink Q1-2m without augmentation Fluid has been clear Results & Data Vital Signs (Past 12 Hours) Vital Signs Temp Pulse Resp BP Pulse Ox 10/09/22 00:45 97.9 F 80 18 135/86 10/09/22 06:58 96 H 93 10/09/22 06:53 91 H 93 10/09/22 06:51 94 H 114/59 L 10/09/22 06:48 89 92 10/09/22 06:43 95 H 91 10/09/22 06:38 84 91 10/09/22 06:36 90 94/50 L 10/09/22 06:33 85 91 10/09/22 06:28 89 92 10/09/22 06:23 88 92 10/09/22 06:21 85 98/57 L 10/09/22 06:18 88 93 10/09/22 06:13 87 92 10/09/22 06:11 86 94 10/09/22 06:08 85 93 10/09/22 06:06 81 101/58 L 10/09/22 06:05 98.8 F 10/09/22 06:03 90 93 10/09/22 06:02 83 93 10/09/22 05:58 82 91 10/09/22 05:53 83 93 10/09/22 05:51 82 102/53 L 10/09/22 05:48 93 H 91 10/09/22 05:43 83 91 10/09/22 05:38 83 92 10/09/22 05:36 86 94/51 L 10/09/22 05:33 92 H 91 10/09/22 05:30 97 H 94 10/09/22 05:28 76 92 10/09/22 05:23 83 91 10/09/22 05:21 84 106/58 L 10/09/22 05:18 81 93 10/09/22 05:13 83 94 10/09/22 05:14 101 H 94 10/09/22 05:08 87 93 10/09/22 05:07 81 94 10/09/22 05:06 85 98/56 L 10/09/22 05:03 89 92 10/09/22 04:58 91 H 92 10/09/22 04:53 93 H 94 10/09/22 04:54 92 H 94 10/09/22 04:52 82 108/58 L 10/09/22 04:48 87 93 10/09/22 04:46 91 H 94 10/09/22 04:43 92 H 95 10/09/22 04:40 93 H 94 10/09/22 04:38 92 H 95 10/09/22 04:36 98 H 115/58 L 10/09/22 04:35 88 94 10/09/22 04:33 84 93 10/09/22 04:28 91 H 93 10/09/22 04:15 98.8 F 10/09/22 04:25 106 H 94 10/09/22 04:23 84 92 10/09/22 04:21 85 96/50 L 10/09/22 04:18 81 92 10/09/22 04:13 89 92 10/09/22 04:08 81 93 10/09/22 04:07 83 97/56 L 10/09/22 04:03 86 92 10/09/22 03:58 87 92 10/09/22 03:53 91 H 94 10/09/22 03:52 83 94 10/09/22 03:51 80 104/57 L 10/09/22 03:48 79 94 10/09/22 03:45 84 94 10/09/22 03:43 82 94 10/09/22 03:40 78 94 10/09/22 03:38 80 95 10/09/22 03:37 77 112/61 10/09/22 03:33 84 95 10/09/22 03:34 85 94 10/09/22 03:28 81 95 10/09/22 03:29 82 94 10/09/22 03:23 88 95 10/09/22 03:22 80 94 10/09/22 03:18 73 95 10/09/22 03:17 83 94 10/09/22 03:16 88 115/78 10/09/22 03:13 73 95 10/09/22 03:12 80 94 10/09/22 03:08 83 95 10/09/22 03:07 68 107/58 L 10/09/22 03:05 81 93 10/09/22 03:03 77 96 10/09/22 03:02 136 H 224/119 H 10/09/22 02:58 68 95 10/09/22 02:57 76 92 10/09/22 02:53 70 96 10/09/22 02:52 74 94 10/09/22 02:48 81 96 10/09/22 02:46 74 113/55 L 10/09/22 02:43 78 95 10/09/22 02:42 77 94 10/09/22 02:38 88 94 10/09/22 02:36 81 94 10/09/22 02:33 87 95 10/09/22 02:31 78 111/56 L 94 10/09/22 02:28 82 95 10/09/22 02:26 77 94 10/09/22 02:23 83 95 10/09/22 02:20 77 94 10/09/22 02:18 70 94 10/09/22 02:15 18 10/09/22 02:15 97.9 F 72 18 94 10/09/22 02:13 81 96 10/09/22 02:10 74 94 10/09/22 02:08 70 96 10/09/22 02:05 80 93 10/09/22 02:03 74 96 10/09/22 01:58 95 10/09/22 01:58 72 10/09/22 01:58 70 94 10/09/22 01:53 68 96 10/09/22 01:51 83 94 10/09/22 01:48 75 95 10/09/22 01:46 74 116/51 L 10/09/22 01:45 83 94 10/09/22 01:43 78 95 10/09/22 01:38 72 95 10/09/22 01:39 70 94 10/09/22 01:33 79 97 10/09/22 01:31 81 94 10/09/22 01:28 70 96 10/09/22 01:27 67 115/61 10/09/22 01:25 75 94 10/09/22 01:23 73 96 10/09/22 01:20 82 116/57 L 10/09/22 01:18 81 115/57 L 96 10/09/22 01:17 77 116/63 10/09/22 01:13 75 97 10/09/22 01:08 69 97 10/09/22 01:09 71 126/68 10/09/22 01:06 73 114/57 L 10/09/22 01:03 93 H 96 10/09/22 01:02 82 90 10/09/22 00:58 77 97 10/09/22 00:53 70 96 10/09/22 00:54 72 93 10/09/22 00:28 97.9 F 80 18 135/86 Coding Level of Care Code None Diagnoses Normal labor O80; Z37.9
--- NOTE | 2022-10-09 11:13 | Delivery Summary ---
Vaginal Delivery Summary Date of Service October 09, 2022 Vaginal Delivery Summary [facility] PREOPERATIVE DIAGNOSIS: 1. Single intrauterine at 38 4/7 wga 2. Labor 3. SROM 4. GBS+ POSTOPERATIVE DIAGNOSIS: 1. Single intrauterine at 38 4/7 wga 2. Labor 3. SROM 4. GBS+ 5. Delivered PROCEDURE: 1. Normal spontaneous vaginal delivery. SURGEON: Brandy Clayton MD ANESTHESIA: Epidural. ESTIMATED BLOOD LOSS: 300 mL FLUIDS: Continuous LR. URINE OUTPUT: None. COMPLICATIONS: None. CONDITION: Stable. INDICATIONS: 27 yo at 38 4/7 wga presented with contractions increasing in frequency and intensity overnight. She underwent srom and continued to progress spontaneously. She received an epidural for pain control and continued to progress to complete and desired to push. Pitocin was started with pushing to help make contractions more regular FINDINGS: A viable male infant, weight pending with Apgars of 8 and 9 at 1 and 5 minutes respectively. SPECIMEN: Cord blood OPERATIVE REPORT: The patient progressed to 10 cm, 100% effaced and +2 station, pushed over intact perineum with anesthesia to deliver a viable male , weight and Apgars as above. Head of delivered in GUNNER position. Nuchal cord was noted and delivered through. Body and shoulders were delivered without difficulty. was delivered to maternal abdomen and nursing staff. Delayed cord clamping was performed for 60 seconds. Cord was clamped and cut. Cord blood was obtained. Placenta delivered spontaneously intact with 3-vessel cord. IV oxytocin and fundal massage were given for excellent hemostasis. Vagina, cervix, perineum, and placenta were inspected. No lacerations were noted. Sponge and needle counts correct x2. No sponges were left behind. Mother and stable in immediate period. [facility] [place] Delivery [place] Vaginal Delivery Codes: 83368 global code for the antepartum, delivery, and post- Delivery Type Details: [facility]
[2022-10-09] MEDS ORDERED: BENZOCAINE 20% AER SPR 82.5 GM CAN EXT PRN (11:15)
[2022-10-09] MEDS ORDERED: ACETAMINOPHEN 325 MG TAB PO PRN (11:15)
[2022-10-09] MEDS ORDERED: bisacodyL 10 MG SUPP PR PRN (11:15)
[2022-10-09] MEDS ORDERED: HYDROCORTISONE ACETATE 25 MG SUPP PR PRN (11:15)
[2022-10-09] MEDS ORDERED: DIPHTHERIA/TETANUS/PERTUSSIS Vaccine (Tdap, Age 7+yrs) 0.5mL SYR/VL IM ONE (11:15)
[2022-10-09] MEDS: IBUPROFEN 600 MG TAB PO PRN ×2 (17:40→21:50)
[2022-10-10] MEDS: IBUPROFEN 600 MG TAB PO PRN (03:09)
--- NOTE | 2022-10-10 06:51 | Obstetrical Progress Note ---
Date of Service October 10, 2022 Assessment & Plan (1) Encounter for care and examination after delivery: 27 yo PP1 from , doing well -Meeting all pp milestones -O+/rubella immune -f/u 6 weeks for appt, desires d/c home today, ok to do so Subjective Ambulation: ambulating normally Voiding: no voiding problems Passing Gas:: Yes Diet Tolerance:: regular diet Lochia:: Small Pain well managed with medication Review of Systems Denies fevers, chills, n/v, FERRARA, CP, SOB Physical Exam Constitutional WD/WN, vitals as above no acute distress Respiratory normal respiratory effort, lungs clear to auscultation Cardiovascular RRR, no murmur, no edema Gastrointestinal (Abdomen) Percussion/Palpation: abdomen soft; abdomen nontender fundus firm at umbilicus and NT Musculoskeletal BLE symmetric, nonerythematous, nontender Results & Data Vital Signs (Past 12 Hours) Vital Signs Temp Pulse Resp BP Pulse Ox O2 Del Method 10/10/22 03:00 97.3 F L 72 16 130/81 98 Room Air 10/09/22 19:30 98.1 F 71 17 118/69 100 Room Air
[2022-10-10] MEDS: DOCUSATE SODIUM 100 MG CAP PO SCH ×2 (07:49→08:44)
[2022-10-10] MEDS ORDERED: PRENATAL VITAMIN 1 TAB PO SCH (08:00)
[2022-10-10] MEDS ORDERED: FERROUS SULFATE 325 MG TAB PO SCH (08:00)
[2022-10-10] MEDS ORDERED: bisacodyL 5 MG TABEC PO SCH (20:00)
== END 2022-10-10 14:30 | disposition home or self-care (01) | DRG 807 ==
LOC: OPB 00:09 → 4S1 00:11 → 4S4 13:49 → 4E2 14:27